=== PATIENT | female | born 2000 | race Caucasian/White ===

== ENCOUNTER 2020-09-06 13:24 | Emergency (ER) | payer BC, SELFPAY ==
--- NOTE | ~2020-09-06 | US_ITS ---
EXAMINATION: US pelvic complete w TV DATE: 09/06/2020 14:48 INDICATION: Bleeding after surgery. TECHNIQUE: Multiple transabdominal and transvaginal sonographic images of the pelvis were obtained. COMPARISON: None. FINDINGS: TRANSABDOMINAL ULTRASOUND: The uterus measures 6.8 x 3.2 x 4.7 cm. There is no free fluid in the pelvis. TRANSVAGINAL ULTRASOUND: The endometrial complex measures 4 mm in thickness. The right ovary 2.6 x 2.5 x 1.6 cm. The left ovar y 3.8 x 2.9 x 2.8 cm. There is normal vascular flow in the ovaries. IMPRESSION: 1. Normal pelvis. Reviewed, dictated and finalized at location A. UN[employer] LIAISON OFFICER IMPRESSION: 1. Normal pelvis.
[2020-09-06 13:26] VITALS: BP 117/70; PULSE 82; RESP 16; TEMP 36.6; O2SAT 100
[2020-09-06 15:01] LABS: Basophils Percent Auto 0.3 % (0.2-1.2); Eosinophils Absolute Auto 0.2 K/mm3 (0-0.3); Eosinophils Percent Auto 2.6 % (0-4.4); Hematocrit 39.5 % (37.0-47.0); Hemoglobin 13.6 g/dL (12.0-15.0); Immature Granulocyte Absolute 0.02 K/mm3 (0.00-0.031); Immature Granulocyte Percent A 0.2 % (0-0.5); Lymphocytes Absolute Auto 1.68 K/mm3 (0.9-3.2); Mean Corpuscular HGB Conc 34.4 g/dl (32-36); Mean Corpuscular Hemoglobin 30.2 pg (26-34); Mean Corpuscular Volume 87.6 fl (80-100); Mean Platelet Volume 10.2 fl (7.4-10.4); Monocytes Absolute Auto 0.5 K/mm3 (0.1-0.6); Monocytes Percent Auto 5.4 % (2.6-8.5); Neutrophils Absolute Auto 6.4 K/mm3 (1.3-6.7); Neutrophils Percent Auto 72.5 % (45.5-73.1); Platelet Count Result 242 k/mm3 (150-375); Red Blood Count 4.51 M/mm3 (4.2-5.4); Red Cell Distribution Width 11.9 % (11.5-14.5); White Blood Count 8.9 K/mm3 (4.5-10.0)
[2020-09-06 15:09] LABS: Add Urine Microscopic? YES; Appearance Urine Cloudy (Clear); Bilirubin Urine Negative (Negative); Blood Urine 3+ (Negative); Color Urine Red (Yellow); Glucose Urine UA Negative (Negative); Ketones Urine Negative (Negative); Leukocyte Esterase Ur Trace LEU/UL (Negative); Mucus Urine Few /lpf; Nitrate Urine Negative (Negative); Protein Urine 2+ mg/dL (Negative); RBC Urine >75 /hpf (0-2); Specific Grav Ur 1.013 (1.001-1.035); Squamous Epithelial Cell Urine Many /hpf (Few); Urobilinogen Urine Negative mg/dL (<2.0); WBC Urine 16-20 /hpf
[2020-09-06 15:17] LABS: Alanine Aminotransferase 14 U/L (4-35); Albumin Level 4.7 g/dL (3.5-5.1); Alkaline Phosphatase 43 U/L (38-126); Anion Gap 8 mmol/L (8-16); Aspartate Amino Transferase 30 U/L (14-36); Bilirubin,Total 0.6 mg/dL (0.2-1.3); Blood Urea Nitrogen 13 mg/dL (7-17); Calcium 9.4 mg/dL (8.4-10.2); Carbon Dioxide 25 mmol/L (22-30); Chloride 107 mmol/L (98-107); Estimated CRCL calculation 67 ml/min; Estimated Glomerular Filt Rate > 60; Glucose 86 mg/dL (65-105); Sodium 140 mmol/L (137-145)
--- NOTE | 2020-09-06 16:14 | ED.GENADULT ---
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 Patient states that she missed her follow-up appointment and has since not been able to make contact with the RAT CULTURIST for evaluation. Patient states that she has been having to change her pad 3 times daily but this morning she became concerned because she had multiple blood clots the size of half dollar size when she wanted to get evaluated. Patient denies pelvic pain or vaginal discharge. Patient denies fever chills nausea vomiting diarrhea chest pain shortness of breath or any other symptoms. Related Data Allergies Allergy/AdvReac Type Severity Reaction Status Date / Time Penicillins Allergy Unknown Verified 04/15/16 14:13 Review of Systems Review of Systems: Narrative: CONSTITUTIONAL: Denies fever, chills, or sweats. EYES: Denies visual changes, redness, or discharge. ENT: Denies rhinorrhea, congestion, sore throat, or otalgia. CARDIOVASCULAR: Denies chest pain, palpitations, or edema. RESPIRATORY: Denies cough or dyspnea. GASTROINTESTINAL: Denies abdominal pain, nausea, vomiting, or diarrhea. GENITOURINARY: Reports vaginal bleeding denies dysuria or hematuria. SKIN: Denies rash or itching. MUSCULOSKELETAL: Denies back pain, joint pain, or myalgia. NEUROLOGIC: Denies headache, numbness, dizziness, or weakness. PSYCHIATRIC: Denies anxiety or depression. Exam Narrative: Exam Narrative: GENERAL: Well-appearing, well-nourished, and in no acute distress. Patient smiling and talking normally without any signs of discomfort. HEAD: Normocephalic, atraumatic. EYES: PERRLA and EOMI. NECK: Supple. No adenopathy or masses. CHEST: Clear to auscultation. No respiratory distress. No wheezes rales or rhonchi HEART: Regular rate and rhythm. ABDOMEN: Soft, nontender, nondistended, normal active bowel sounds. VAGINAL: There is bright red blood in the vaginal vault. There is 2-3 pinky tips sized clots in the vault. Blood is not seen coming out of cervix. No tissue or discharge noted. EXTREMITIES: Normal range of motion. No edema. SKIN: Warm, dry, no rash. NEURO: No focal deficits. Alert and oriented x3. PSYCH: Normal mood and affect. Course Vital Signs Vital signs: Vital Signs Temperature 98 F 09/06/20 13:26 Pulse Rate 82 09/06/20 13:26 Respiratory Rate 16 09/06/20 13:26 Blood Pressure 117/70 09/06/20 13:26 Pulse Oximetry 100 09/06/20 13:26 Temperature 98 F 09/06/20 13:26 Pulse Rate 82 09/06/20 13:26 Respiratory Rate 16 09/06/20 13:26 Blood Pressure 117/70 09/06/20 13:26 Pulse Oximetry 100 09/06/20 13:26 Medical Decision Making MDM Narrative Medical decision making narrative: Dr Aquino- exploratory laparoscopy and clean up. Patient did not do follow up. Discussed case and workup with Dr Huang who states she can follow up in office and continue the sprintec. Vital Signs Vital Signs: Vital Signs Temperature 98 F 09/06/20 13:26 Pulse Rate 82 09/06/20 13:26 Respiratory Rate 16 09/06/20 13:26 Blood Pressure 117/70 09/06/20 13:26 Pulse Oximetry 100 09/06/20 13:26 Temperature 98 F 09/06/20 13:26 Pulse Rate 82 09/06/20 13:26 Respiratory Rate 16 09/06/20 13:26 Blood Pressure 117/70 09/06/20 13:26 Pulse Oximetry 100 09/06/20 13:26 Lab Data Result diagrams: 09/06/20 14:54 09/06/20 14:54 Labs: Lab Results 09/06/20 09/06/20 09/06/20 Range/Units 14:54 14:54 14:54 WBC 8.9 (4.5-10.0) K/mm3 RBC 4.51 (4.2-5.4) M/mm3 Hgb 13.6 (12.0-15.0) g/dL Hct 39.5 (37.0-47.0) % MCV 87.6 (80-100) fl MCH 30.2 (26-34) pg MCHC 34.4 (32-36) g/
[2020-09-06 16:57] VITALS: BP 124/88; PULSE 84; RESP 14; O2SAT 98
== END 2020-09-06 16:58 | disposition home or self-care (01) ==
PROVIDERS: Physician Assistant; Emergency Provider Emergency Medicine
DX: N93.9 Abnormal uterine and vaginal bleeding, unspecified (principal)
CPT/HCPCS: 36415; 76830; 76856; 80053; 81001; 81025; 85025; 87086; 99284

== ENCOUNTER 2022-11-05 12:12 | Emergency (ER) | payer BC, SELFPAY ==
[2022-11-05 12:15] VITALS: BP 114/60; PULSE 96; RESP 16; TEMP 37.1; O2SAT 100
[2022-11-05 13:18] LABS: Strep Group A RT-PCR DETECTED (Negative)
[2022-11-05 13:32] LABS: Influenza A QL RT-PCR Negative (Negative); Influenza B QL RT-PCR Negative (Negative); SARS-CoV-2 RNA PCR Negative
--- NOTE | 2022-11-05 13:37 | ED.GENADULT ---
HPI - General Adult General Chief complaint: Upper Respiratory Infection Stated complaint: sore throat Time Seen by Provider: 11/05/22 12:20 History of Present Illness HPI narrative: Patient is a 22-year-old female who presents to the ER with sore throat. Ongoing for 5 days. No fevers or chills or sweats. Has pain with swallowing. Pressure in her ears then moving from left to the right. No dizziness. No known sick contacts. Took a couple days of her sisters antibiotics but they ran out. She has some exudate on her left tonsil. Related Data Allergies Allergy/AdvReac Type Severity Reaction Status Date / Time Penicillins Allergy Unknown Verified 04/15/16 14:13 Review of Systems Constitutional: Constitutional: Denies chills and Denies fever(s) ENT: Denies dizziness, Denies nasal congestion and Reports sore throat Respiratory: Respiratory: Denies cough and Denies dyspnea PMFSH Past Medical History Medical History (Updated 11/05/22 @ 13:42 by Canelo Suazo MD) Healthy female adult Surgical History Surgical History (Updated 11/05/22 @ 13:38 by Canelo Suazo MD) No history of previous surgery Social History Social History (Updated 11/05/22 @ 13:39 by Canelo Suazo MD) Smoking status: Never smoker Exam Narrative: GENERAL: Well-appearing, well-nourished, and in no acute distress. HEAD: Normocephalic, atraumatic. ENT: Mucous membranes moist. Mild pharyngeal erythema with slight tonsillar hypertrophy and exudate on left side. TMs normal bilaterally. NECK: Supple. CHEST: Clear to auscultation. No respiratory distress. HEART: Regular rate and rhythm. No murmur heard. Normal peripheral pulses. NEURO: Alert and oriented x3. PSYCH: Normal mood and affect. Course Course Emergency Course: Patient strep positive. Will treat with antibiotics. Patient aware of diagnosis and treatment plan. Vital Signs Vital signs: Vital Signs Temperature 98.8 F 11/05/22 12:15 Pulse Rate 96 11/05/22 12:15 Respiratory Rate 16 11/05/22 12:15 Blood Pressure 114/60 11/05/22 12:15 Pulse Oximetry 100 11/05/22 12:15 Oxygen Delivery Room Air 11/05/22 12:15 Temperature 98.8 F 11/05/22 12:15 Pulse Rate 96 11/05/22 12:15 Respiratory Rate 16 11/05/22 12:15 Blood Pressure 114/60 11/05/22 12:15 Pulse Oximetry 100 11/05/22 12:15 Oxygen Delivery Room Air 11/05/22 12:15 Medical Decision Making Vital Signs Vital Signs: Vital Signs Temperature 98.8 F 11/05/22 12:15 Pulse Rate 96 11/05/22 12:15 Respiratory Rate 16 11/05/22 12:15 Blood Pressure 114/60 11/05/22 12:15 Pulse Oximetry 100 11/05/22 12:15 Oxygen Delivery Room Air 11/05/22 12:15 Temperature 98.8 F 11/05/22 12:15 Pulse Rate 96 11/05/22 12:15 Respiratory Rate 16 11/05/22 12:15 Blood Pressure 114/60 11/05/22 12:15 Pulse Oximetry 100 11/05/22 12:15 Oxygen Delivery Room Air 11/05/22 12:15 Lab Data Labs: Lab Results 11/05/22 11/05/22 Range/Units 12:52 12:52 Influenza A (RT-PCR) Negative (Negative) Influenza B (RT-PCR) Negative (Negative) SARS-CoV-2 RNA (RT-PCR) Negative Group A Strep (PCR) Detected A (Negative) Discharge Plan Discharge Clinical Impression: Strep throat Patient Disposition: Home, Self-Care Condition: Stable Instructions: Antibiotic Form, Strep Throat (ED) Additional Instructions: Return the ER if you cannot breathe, you cannot swallow, you have additional concerns. Prescriptions: New cephalexin 500 mg capsule 500 mg PO Q12H Qty: 20 0RF Follow-up/Referrals: Arie Hogue MD [Physician] - 1 Week PHYSICIAN,SORORITY SUPERVISOR [Primary Care Provider] -
== END 2022-11-05 14:14 | disposition home or self-care (01) ==
PROVIDERS: Emergency Provider Emergency Medicine
DX: J02.0 Streptococcal pharyngitis (principal); Z20.822 Contact with and (suspected) exposure to COVID-19
CPT/HCPCS: 87636; 87651; 99283

== ENCOUNTER 2023-03-25 18:00 | Emergency (ER) | payer BC, SELFPAY ==
[2023-03-25 18:08] VITALS: BP 123/70; PULSE 99; RESP 14; TEMP 36.9; O2SAT 99
[2023-03-25 20:36] LABS: Appearance Urine Clear (Clear); Bilirubin Urine Negative (Negative); Blood Urine Negative (Negative); Color Urine Yellow (Yellow); Glucose Urine UA Negative (Negative); Ketones Urine Trace mg/dL (Negative); Leukocyte Esterase Ur Negative LEU/UL (Negative); Nitrate Urine Negative (Negative); Protein Urine Negative (Negative); Specific Grav Ur 1.025 (1.001-1.035); pH Urine 6.5 (5.0-9.0)
[2023-03-25 21:04] LABS: Add Urine Microscopic? NO
[2023-03-25] MEDS: predniSONE 20 MG TABLET 60 MG PO (21:22)
[2023-03-25 22:10] LABS: Basophils Percent Auto 0.3 % (0.2-1.2); Eosinophils Absolute Auto 0.2 K/mm3 (0-0.3); Eosinophils Percent Auto 2.3 % (0-4.4); Hematocrit 37.8 % (37.0-47.0); Hemoglobin 12.4 g/dL (12.0-15.0); Immature Granulocyte Absolute 0.01 K/mm3 (0.00-0.031); Immature Granulocyte Percent A 0.2 % (0-0.5); Lymphocytes Absolute Auto 2.67 K/mm3 (0.9-3.2); Lymphocytes Percent Auto 40.3 % (18.3-44.2); Mean Corpuscular HGB Conc 32.8 g/dl (32-36); Mean Corpuscular Hemoglobin 29.9 pg (26-34); Mean Corpuscular Volume 91.1 fl (80-100); Mean Platelet Volume 10.2 fl (7.4-10.4); Monocytes Absolute Auto 0.5 K/mm3 (0.1-0.6); Neutrophils Absolute Auto 3.3 K/mm3 (1.3-6.7); Neutrophils Percent Auto 48.9 % (45.5-73.1); Platelet Count Result 194 k/mm3 (150-375); Red Blood Count 4.15 M/mm3 (4.2-5.4); Red Cell Distribution Width 12.5 % (11.5-14.5); White Blood Count 6.6 K/mm3 (4.5-10.0)
[2023-03-25 22:15] LABS: Alanine Aminotransferase 16 U/L (6-35); Albumin Level 4.1 g/dL (3.5-5.1); Alkaline Phosphatase 35 U/L (38-126); Anion Gap 5 mmol/L (8-16); Aspartate Amino Transferase 23 U/L (14-36); Bilirubin,Total 0.4 mg/dL (0.2-1.3); Blood Urea Nitrogen 9 mg/dL (7-17); Carbon Dioxide 25 mmol/L (22-30); Chloride 109 mmol/L (98-107); Estimated CRCL calculation 67 ml/min; Estimated Glomerular Filt Rate > 60; Glucose 86 mg/dL (65-110); Potassium 3.9 mmol/L (3.4-5.0); Sodium 139 mmol/L (137-145)
--- NOTE | 2023-03-25 22:34 | ED.SKABFB ---
HPI - Skin/Abscess/Foreign Bdy General Chief complaint: Skin/Abscess/Foreign Body Stated complaint: rash Time Seen by Provider: 03/25/23 19:44 Source: patient Mode of arrival: ambulatory Limitations: no limitations History of Present Illness HPI narrative: 22-year-old female presents today with complaints of a rash that started on her lower back now with spots to the right upper thigh and her right face. Patient denies any new soaps lotions detergents or contact with anything that could be cause allergies. Denies any recent outings in the [place]. Denies any history of this issue before. Denies any fevers, body aches, chills. complaint: rash Related Data Allergies Allergy/AdvReac Type Severity Reaction Status Date / Time Penicillins Allergy Unknown Verified 04/15/16 14:13 Review of Systems Review of Systems: All systems reviewed & are unremarkable except as noted in HPI and below PMFSH Past Medical History Medical History (Updated 03/26/23 @ 00:00 by Joya Rivera) Healthy female adult Surgical History Surgical History (Updated 11/05/22 @ 13:38 by Canelo Suazo MD) No history of previous surgery Social History Social History (Updated 11/05/22 @ 13:39 by Canelo Suazo MD) Smoking status: Never smoker Exam Const: General: cooperative, healthy appearing, comfortable, no acute distress and well developed Orientation/consciousness: patient oriented x3 HENMT: Head: normal to inspection Eyes: General: appearance normal, both eyes and all related structures Resp: Effort & Inspection: normal respiratory effort and able to speak in complete sentences Auscultation: clear to auscultation bilaterally Cardio: Rate: regular rate Rhythm: regular rhythm Heart sounds: S1 normal heart sound present and S2 normal heart sound present Skin: Other: Brownish color macular rash to the lower back. Papular rash noted to the right leg and small amount to the right eyebrow. Neuro: General: patient oriented x3 Course Vital Signs Vital signs: Vital Signs Temperature 98.4 F 03/25/23 18:08 Pulse Rate 99 03/25/23 18:08 Respiratory Rate 14 03/25/23 18:08 Blood Pressure 123/70 03/25/23 18:08 Pulse Oximetry 99 03/25/23 18:08 Oxygen Delivery Room Air 03/25/23 18:08 Temperature 98.4 F 03/25/23 18:08 Pulse Rate 99 03/25/23 18:08 Respiratory Rate 14 03/25/23 18:08 Blood Pressure 123/70 03/25/23 18:08 Pulse Oximetry 99 03/25/23 18:08 Oxygen Delivery Room Air 03/25/23 18:08 MDM - Skin/Abscess/Foreign Bdy MDM Narrative Medical decision making narrative: 22-year-old female HPI as noted. Differentials noted below. Due to back pain work-up to include urinalysis with urine test. Urinalysis negative for any concerning signs for UTI. Bedside test negative. Discussed results with patient and plan of prednisone. Patient concerned and wanting lab work done including CBC and a CMP due to concerns for cancer. Discussed with patient that that is not necessary at this time. Patient persistent. CBC and CMP ordered. CBC without concerning findings. CMP also without concerning findings. Readdressed plan of care with patient plan to discharge with prednisone and plan follow-up with primary care doctor. Differential Diagnosis Differential diagnosis: Likely allergic reaction to drug, eczema, insect bites, impetigo and contact dermatitis Lab Data Attestation: I reviewed the patient's lab results. 03/25/23 21:48 03/25/23 21:48 Labs: Lab Results 03/25/23 03/25/23 Range/Units 20:23 21:48 WBC 6.6 (4.5-10.0) K/mm3 RBC 4.15 L (4.2-5.4) M/mm3 Hgb 12.4 (12.0-15.0) g/dL Hct 37.8 (37.0-47.0) % MCV 91.1 (80-100) fl MCH 29.9 (26-34) pg MCHC 32.8 (32-36) g/dl RDW 12.5 (11.5-14.5) % Plt Count 194 (150-375) k/mm3 MPV 10.2 (7.4-10.4) fl Immature Gran % (Auto) 0.2 (0-0.5) % Neut %
== END 2023-03-25 22:55 | disposition home or self-care (01) ==
PROVIDERS: Emergency Provider Nurse Practitioner Family
DX: L25.9 Unspecified contact dermatitis, unspecified cause (principal); M54.50 Low back pain, unspecified
CPT/HCPCS: 36415; 80053; 81003; 81025; 85025; 99283; J7512